=== PATIENT | male | born 2000 | race Caucasian/White ===

== ENCOUNTER 2019-11-27 00:21 | Emergency (ER) | payer BC ==
[~2019-11-27] VITALS: Ht 177.8 cm; Wt 90.9 kg
[2019-11-27 00:30] VITALS: Ht 177.8 cm; Wt 90.9 kg
[2019-11-27] MEDS ORDERED: CATAPRES0.1 MG (00:30)
[2019-11-27] MEDS ORDERED: LISINOPRIL10 MG PO (00:30)
[2019-11-27 01:01] LABS: BASOPHILS 0.2 % (0-2); EOSINOPHILS 2.6 % (0-7); HEMATOCRIT 45.5 % (42.0-54.0); HEMOGLOBIN 15.9 g/dL (13.5-17.5); IMMATURE GRANULOCYTES 0.2 % (0-5); LYMPHOCYTES 23.8 % (15-50); MCH 29.2 pg (26.0-34.0); MCHC 34.9 g/dL (31.0-37.0); MCV 83.6 fL (80.0-100.0); MEAN PLATELET VOLUME 9.4 fL (7.4-10.4); MONOCYTES 7.5 % (2-11); NEUTROPHILS 65.7 % (40-80); PLATELET COUNT 280 10x3/uL (130-400); RBC 5.44 10x6/uL (4.20-6.10); RDW 12.5 % (11.5-14.5); WBC 8.9 10x3/uL (4.8-10.8)
[2019-11-27 01:05] LABS: CALC OSMOLALITY 281 mosm/kg (275-300); CARBON DIOXIDE 29.5 mmol/L (21.0-32.0); CHLORIDE - SERUM 105 mmol/L (98-107); CREATININE - SERUM 1.3 mg/dL (0.6-1.3); GLUCOSE 103 mg/dL (74-106); POTASSIUM - SERUM 3.8 mmol/L (3.5-5.1); SODIUM 141 mmol/L (136-145); UREA NITROGEN 14 mg/dL (7-18); eGFR NON AFRICAN AMERICAN 74 mL/min (90-120)
[2019-11-27 01:21] LABS: ALKALINE PHOSPHATASE 138 U/L (46-116); ALT (SGPT) 46 U/L (10-68); BILIRUBIN - TOTAL 0.33 mg/dL (0.2-1.3); LIPASE 167 U/L (73-393); THYROID STIMULATING HORMONE 2.73 uIU/mL (0.36-3.74); TROPONIN-I < 0.017 ng/mL (0.000-0.060)
[2019-11-27 01:25] LABS: PRO BNP 4 pg/mL (0-125)
[2019-11-27 02:30] VITALS: BP 144/83
== END 2019-11-27 02:30 | disposition home or self-care (01) ==
LOC: D.ER 00:21
PROVIDERS: Family Medicine
DX: R55 Syncope and collapse (principal); I10 Essential (primary) hypertension